=== PATIENT | male | born 1965 | race Caucasian/White ===

== ENCOUNTER 2016-03-19 10:37 | Emergency (ER) | payer MEDICAID ==
[~2016-03-19] VITALS: Ht 172.7 cm; Wt 68.0 kg
--- NOTE | 2016-03-19 10:37 | NUR ---
PLACED TO ROOM 7--ECG, VITALS, AND IV INITIATED----MD AT BEDSIDE PLACED ON 2L NC ---
--- NOTE | 2016-03-19 10:37 | NUR ---
Patient ambulated to bed 7. Dr. William and RN evaluating patient while EKG is completed at bedside by EMT.
--- NOTE | 2016-03-19 10:40 | NUR ---
50M BIB C/O MID-CHEST PAIN, RADIATING TO NECK, PRESSURE, 10/10 X 1 HR TODAY; PT STATES RIGHT RIB /RIGHT CHEST PAIN STARTED 1 HR AGO WHILE PLAYING SOCCER, PROGRESSED TO MID CHEST RADIATING TO NECK; PT STATED 1 EPISODE OF VOMITING PRIOR TO ARRIVAL; ABDOMEN SOFT, NON-TENDER, ACTIVE BOWEL SOUNDS X 4 QUADRANTS; A&OX4, BL LUNG SOUNDS CLEAR, RR EVEN/UNLABORED AT THIS TIME, SKIN IS WARM/DRY/INTACT AT THIS TIME; PT RESTING IN BED, W/ BED IN LOWEST POSITION; POSITIONED FOR COMFORT; AT BEDSIDE; ER MD AWARE OF STATUS. WILL CONTINUE TO MONITOR.
[2016-03-19] MEDS ORDERED: NITROGLYCERIN 0.4 MG TAB SL ONE ×4 (10:42→10:50)
[2016-03-19] MEDS ORDERED: ASPIRIN 325 MG TAB ONE (10:43)
[2016-03-19] MEDS ORDERED: CLOPIDOGREL 75 MG TAB ONE (10:44)
[2016-03-19 10:46] VITALS: BP 147/68
[2016-03-19] MEDS ORDERED: MORPHINE SULFATE 4 MG/ML SYR ONE (10:46)
[2016-03-19] MEDS ORDERED: ASPIRIN 325 MG TAB PO ONE (10:50)
[2016-03-19] MEDS ORDERED: CLOPIDOGREL 75 MG TAB PO ONE (10:50)
[2016-03-19] MEDS ORDERED: MORPHINE SULFATE 4 MG/ML SYR IVP ONE (10:50)
--- NOTE | 2016-03-19 10:55 | NUR ---
[facility] at bedside for transfer to [facility].
[2016-03-19 10:59] VITALS: BP 116/78
--- NOTE | 2016-03-19 10:59 | NUR ---
Patient to be transferred to [facility]. Is being transferred due to HIGHER LEVEL OF CARE. Receiving facility has accepting physician and available space. ER physician has signed transfer form. Patient or responsible alliance party has agreed to transfer and signed form. Patient belongings inventoried and will be sent with patient. Copy of nursing notes, lab reports, EKG, Physicians Orders and X-rays to be sent with patient. ER MD DR. GAY SPOKE TO DR at receiving facility. [facility] ambulance service has been called for transfer. PT TRANSFERRED VIA GURNEY ACCOMPANIED BY MICHAEL AT THIS TIME.
== END 2016-03-19 10:59 | disposition short-term general hospital (02) ==
LOC: EDBD 10:37 → MED 10:37
DX: I21.09 ST elevation (STEMI) myocardial infarction involving other coronary artery of anterior wall (principal); I24.9 Acute ischemic heart disease, unspecified
CPT/HCPCS: 96374; 96375; 99285; J1644; J2270